=== PATIENT | female | born 2000 | race Two or more races ===

== ENCOUNTER 2022-02-27 15:36 | Emergency (ER) | payer MEDICAID ==
[~2022-02-27] VITALS: Ht 167.6 cm; Wt 47.6 kg
[2022-02-27 15:36] VITALS: BP 130/85
[2022-02-27 17:12] LABS: Eosinophils # (auto) 0.3 10 ^3/uL (0-0.8); Lymphocytes # (auto) 2.6 10 ^3/uL (0.4-5.4); Monocytes # (auto) 0.6 10 ^3/uL (0-1.3); Red Cell Distribution Width 16.3 % (11.8-14.3)
[2022-02-27 17:13] LABS: Basophils # (auto) 0.1 10 ^3/uL (0-0.2); Basophils % (auto) 1.1 % (0.0-2.0); Eosinophils % (auto) 2.5 % (0.0-7.0); Hematocrit 42.7 % (36.0-46.0); Hemoglobin 14.3 g/dL (12.2-16.2); Lymphocytes % (auto) 21.9 % (10.0-50.0); Mean Corpuscular Hemoglobin 24.9 pg (28.0-32.0); Mean Corpuscular Hgb Conc. 33.5 g/dL (32.0-36.0); Mean Corpuscular Volume 74.5 fL (80.0-100.0); Monocytes % (auto) 4.8 % (0.0-12.0); Neutrophils # (auto) 8.4 10 ^3/uL (1.6-8.6); Neutrophils % (auto) 69.7 % (37.0-80.0); Red Blood Cells 5.73 10^6/uL (4.0-5.20)
[2022-02-27 17:30] LABS: Potassium 3.6 mmol/L (3.5-5.1)
[2022-02-27 17:33] LABS: Albumin 4.3 g/dL (3.4-5.0); BUN/Creatinine Ratio 15.7
[2022-02-27 17:35] LABS: Bilirubin, Total 0.3 mg/dL (0.2-1.0); Total Protein 8.9 g/dL (6.4-8.2)
[2022-02-27] MEDS ORDERED: ALUM & MAG HYDROX-SIMETH LIQ(MAALOX) 30 ML PO ONE (18:00)
[2022-02-27] MEDS ORDERED: LIDOCAINE VISCOUS 2% 15ML UD PO ONE (18:00)
[2022-02-27] MEDS ORDERED: LACTATED RINGER'S 2,000 ML IV ONE (18:00)
[2022-02-27] MEDS ORDERED: ONDANSETRON HCL 4 MG/2 ML VIAL IV ONE (18:00)
[2022-02-27] MEDS ORDERED: FAMOTIDINE (10MG/ML) 2ML VL IV ONE (18:00)
== END 2022-02-27 18:52 | disposition left against medical advice (07) ==
LOC: ER 15:36
DX: R11.2 Nausea with vomiting, unspecified (principal); R42 Dizziness and giddiness; R19.7 Diarrhea, unspecified; Z53.21 Procedure and treatment not carried out due to patient leaving prior to being seen by health care provider
CPT/HCPCS: 36415; 36600; 80053; 82805; 82962; 85025

== ENCOUNTER 2022-05-21 14:12 | Emergency (ER) | payer MEDICAID ==
[2022-05-21 16:16] LABS: Urine Bacteria NONE SEEN /hpf (None Seen); Urine Blood 3+ /uL (Negative); Urine Budding Yeast OCCASIONAL /hpf (None Seen); Urine Specific Gravity 1.042 (1.001-1.035); Urine WBC 153 /hpf (0 - 5)
[2022-05-21] MEDS ORDERED: IBUPROFEN 800 MG TAB PO ONE (17:15)
[2022-05-21] MEDS ORDERED: CIPR500S2 PO (17:17)
[2022-05-21] MEDS ORDERED: IBUP800T27 PO (17:17)
[2022-05-21 17:33] VITALS: BP 122/74
== END 2022-05-21 17:06 | disposition home or self-care (01) ==
LOC: ER 14:12
DX: N39.0 Urinary tract infection, site not specified (principal); E11.65 Type 2 diabetes mellitus with hyperglycemia; Z20.822 Contact with and (suspected) exposure to COVID-19
CPT/HCPCS: 36415; 81001; 81025

== ENCOUNTER 2022-07-12 01:05 | Emergency (ER) | payer MEDICAID ==
[~2022-07-12] VITALS: Ht 167.6 cm; Wt 104.5 kg
[~2022-07-12 01:05] MED LIST: CIPR500S2 PO; IBUP800T27 PO
[2022-07-12 01:44] VITALS: BP 129/90
[2022-07-12] MEDS ORDERED: KETOROLAC TROMETH 60MG/2ML VIAL IM ONE (03:45)
== END 2022-07-12 04:42 | disposition home or self-care (01) ==
LOC: EDBD 01:05 → ER 01:06
DX: R51.9 Headache, unspecified (principal); E11.9 Type 2 diabetes mellitus without complications
CPT/HCPCS: 96372; 99283; J1885

== ENCOUNTER 2022-08-12 21:23 | Emergency (ER) | payer MEDICAID ==
[~2022-08-12] VITALS: Ht 167.6 cm; Wt 110.0 kg
[2022-08-12] MEDS ORDERED: KETOROLAC TROMETH 60MG/2ML VIAL IM ONE (22:15)
[2022-08-13] VITALS: BP 125/70
== END 2022-08-13 00:46 | disposition home or self-care (01) ==
LOC: EDBD 21:23 → ER 21:24
DX: M54.2 Cervicalgia (principal); R07.89 Other chest pain; M79.18 Myalgia, other site; E11.9 Type 2 diabetes mellitus without complications; V43.52XA Car driver injured in collision with other type car in traffic accident, initial encounter; Y93.89 Activity, other specified; Y92.89 Other specified places as the place of occurrence of the external cause; Y99.8 Other external cause status
CPT/HCPCS: 71045; 71120; 72040; 72070; 72170; 73552; 73562; 96372; 99284; J1885

== ENCOUNTER 2023-01-19 10:39 | Emergency (ER) | payer MEDICAID ==
[2023-01-19 11:22] VITALS: BP 122/59
[2023-01-19 11:52] LABS: Basophils # (auto) 0.1 10 ^3/uL (0-0.2); Eosinophils # (auto) 0.3 10 ^3/uL (0-0.8); Monocytes # (auto) 0.4 10 ^3/uL (0-1.3)
[2023-01-19 11:53] LABS: Basophils % (auto) 1.5 % (0.0-2.0); Hematocrit 41.9 % (36.0-46.0); Hemoglobin 14.2 g/dL (12.2-16.2); Lymphocytes # (auto) 2.5 10 ^3/uL (0.4-5.4); Lymphocytes % (auto) 29.5 % (10.0-50.0); Mean Corpuscular Hemoglobin 26.8 pg (28.0-32.0); Mean Corpuscular Volume 78.9 fL (80.0-100.0); Monocytes % (auto) 5.1 % (0.0-12.0); Neutrophils # (auto) 5.2 10 ^3/uL (1.6-8.6); Neutrophils % (auto) 60.9 % (37.0-80.0); Red Blood Cells 5.31 10^6/uL (4.0-5.20); Red Cell Distribution Width 15.3 % (11.8-14.3); White Blood Cell 8.6 10^3/uL (4.4-10.8)
[2023-01-19 12:19] LABS: BUN/Creatinine Ratio 29.2; Calcium 9.4 mg/dL (8.5-10.1); Potassium 3.6 mmol/L (3.5-5.1)
[2023-01-19 12:21] LABS: Urine Bacteria NONE SEEN /hpf (None Seen); Urine Blood 3+ /uL (Negative); Urine Mucus FEW (None Seen); Urine Specific Gravity 1.022 (1.001-1.035); Urine WBC 25 /hpf (0 - 5)
[2023-01-19 12:34] LABS: Alcohol, Urine < 3.0 mg/dL (0-10); Amphetamine Screen, Urine NEGATIVE (NEGATIVE); Barbiturate Scree,Urine NEGATIVE (NEGATIVE); Benzodiazephine Screen, Urine NEGATIVE (NEGATIVE); Cannabinoid Screen, Urine NEGATIVE (NEGATIVE); Cocaine Screen, Urine NEGATIVE (NEGATIVE); Opiate Scree,Urine NEGATIVE (NEGATIVE); Phencyclidine Screen, Urine NEGATIVE (NEGATIVE)
[2023-01-19] MEDS ORDERED: METF-370 PO (12:45)
[2023-01-19] MEDS ORDERED: PHEN200T16 PO (12:45)
[2023-01-19] MEDS ORDERED: metFORMIN HYDROCHLORIDE 500 MG TAB PO ONE (12:45)
[2023-01-19] MEDS ORDERED: BACDST PO (12:45)
== END 2023-01-19 12:55 | disposition home or self-care (01) ==
LOC: ER 10:39
DX: N39.0 Urinary tract infection, site not specified (principal); E11.65 Type 2 diabetes mellitus with hyperglycemia; Z79.1 Long term (current) use of non-steroidal anti-inflammatories (NSAID); Z79.2 Long term (current) use of antibiotics; Z79.84 Long term (current) use of oral hypoglycemic drugs; Z79.899 Other long term (current) drug therapy
CPT/HCPCS: 36415; 80048; 80307; 81001; 81025; 85025

== ENCOUNTER 2023-04-11 00:23 | Emergency (ER) | payer MEDICAID ==
[~2023-04-11] VITALS: Ht 170.2 cm; Wt 108.7 kg
[~2023-04-11 00:23] MED LIST changes: +BACDST PO; +IBUP-1456 PO; -IBUP800T27 PO; +METF-370 PO; +PHEN-922 PO
[2023-04-11 00:30] VITALS: BP 122/79
[2023-04-11 01:25] LABS: Urine Bacteria NONE SEEN /hpf (None Seen); Urine Blood 1+ /uL (Negative); Urine Specific Gravity 1.033 (1.001-1.035); Urine WBC 13 /hpf (0 - 5)
[2023-04-11 01:40] LABS: Basophils # (auto) 0.1 10 ^3/uL (0-0.2); Basophils % (auto) 0.9 % (0.0-2.0); Eosinophils # (auto) 0.2 10 ^3/uL (0-0.8); Eosinophils % (auto) 2.5 % (0.0-7.0); Hematocrit 42.4 % (36.0-46.0); Hemoglobin 14.6 g/dL (12.2-16.2); Lymphocytes # (auto) 2.8 10 ^3/uL (0.4-5.4); Lymphocytes % (auto) 36.3 % (10.0-50.0); Mean Corpuscular Hemoglobin 28.6 pg (28.0-32.0); Mean Corpuscular Hgb Conc. 34.5 g/dL (32.0-36.0); Mean Corpuscular Volume 82.8 fL (80.0-100.0); Monocytes # (auto) 0.5 10 ^3/uL (0-1.3); Monocytes % (auto) 6.2 % (0.0-12.0); Neutrophils # (auto) 4.2 10 ^3/uL (1.6-8.6); Neutrophils % (auto) 54.1 % (37.0-80.0); Nucleated Red Blood Cells % 0.2 %; Red Blood Cells 5.12 10^6/uL (4.0-5.20); Red Cell Distribution Width 14.3 % (11.8-14.3); White Blood Cell 7.8 10^3/uL (4.4-10.8)
[2023-04-11 01:51] LABS: Albumin 3.9 g/dL (3.4-5.0); Calcium 8.8 mg/dL (8.5-10.1); Potassium 3.6 mmol/L (3.5-5.1)
[2023-04-11 01:54] LABS: BUN/Creatinine Ratio 19.7 (10.0-20.0); Bilirubin, Total 0.4 mg/dL (0.2-1.0)
[2023-04-11] MEDS ORDERED: SODIUM CHLORIDE 0.9% 1,000 ML IV ONE (02:30)
== END 2023-04-11 06:55 | disposition left against medical advice (07) ==
LOC: ER 00:23
DX: G51.0 Bell's palsy (principal); J18.9 Pneumonia, unspecified organism; E11.9 Type 2 diabetes mellitus without complications; R07.89 Other chest pain
CPT/HCPCS: 36415; 70450; 71045; 80053; 81001; 82962; 84484; 85025; 96360; 99284; J7030

== ENCOUNTER 2024-05-16 08:49 | Emergency (ER) | payer MEDICAID ==
[~2024-05-16] VITALS: Ht 162.6 cm; Wt 107.2 kg
[2024-05-16 09:44] VITALS: BP 140/86; PULSE 90; RESP 18; TEMP 98; O2SAT 100
[2024-05-16 11:11] LABS: Basophils # (auto) 0.1 10 ^3/uL (0-0.2); Basophils % (auto) 0.8 % (0.0-2.0); Eosinophils # (auto) 0.3 10 ^3/uL (0-0.8); Eosinophils % (auto) 3.1 % (0.0-7.0); Hematocrit 44.1 % (36.0-46.0); Lymphocytes # (auto) 2.3 10 ^3/uL (0.4-5.4); Lymphocytes % (auto) 24.4 % (10.0-50.0); Mean Corpuscular Hemoglobin 28.2 pg (28.0-32.0); Mean Corpuscular Volume 82.8 fL (80.0-100.0); Monocytes # (auto) 0.5 10 ^3/uL (0-1.3); Monocytes % (auto) 5.6 % (0.0-12.0); Neutrophils # (auto) 6.2 10 ^3/uL (1.6-8.6); Neutrophils % (auto) 66.1 % (37.0-80.0); Nucleated Red Blood Cells % 0.1 %; Red Blood Cells 5.33 10^6/uL (4.0-5.20); Red Cell Distribution Width 14.2 % (11.8-14.3); White Blood Cell 9.3 10^3/uL (4.4-10.8)
[2024-05-16 11:14] LABS: Chloride 101 mmol/L (98-107); Potassium 3.5 mmol/L (3.5-5.1); Sodium 133 mmol/L (136-145)
[2024-05-16 11:15] LABS: Anion Gap 6 (5-15); Calcium 9.5 mg/dL (8.5-10.1); Carbon Dioxide 26 mmol/L (20-30)
[2024-05-16 11:20] LABS: BUN/Creatinine Ratio 20.3 (10.0-20.0); Blood Urea Nitrogen 14 mg/dL (9-23); Glucose 276 mg/dL (74-106)
[2024-05-16] MEDS ORDERED: BACL10TA PO (11:30)
== END 2024-05-16 11:33 | disposition home or self-care (01) ==
LOC: ER 08:49
DX: M54.41 Lumbago with sciatica, right side (principal); E11.9 Type 2 diabetes mellitus without complications
CPT/HCPCS: 36415; 72100; 80048; 85025

== ENCOUNTER 2024-08-28 12:54 | Emergency (ER) | payer MEDICAID ==
[~2024-08-28] VITALS: Ht 167.6 cm; Wt 106.1 kg
[~2024-08-28 12:54] MED LIST changes: +BACL10TA PO
[2024-08-28 13:56] LABS: Urine Bacteria None Seen /hpf (None Seen)
[2024-08-28 14:13] LABS: Basophils # (auto) 0.1 10 ^3/uL (0-0.2); Basophils % (auto) 1.3 % (0.0-2.0); Eosinophils # (auto) 0.3 10 ^3/uL (0-0.8); Eosinophils % (auto) 3.2 % (0.0-7.0); Hematocrit 45.7 % (36.0-46.0); Hemoglobin 15.5 g/dL (12.2-16.2); Lymphocytes # (auto) 3.5 10 ^3/uL (0.4-5.4); Lymphocytes % (auto) 34.3 % (10.0-50.0); Mean Corpuscular Hemoglobin 28.5 pg (28.0-32.0); Mean Corpuscular Volume 83.9 fL (80.0-100.0); Monocytes # (auto) 0.6 10 ^3/uL (0-1.3); Monocytes % (auto) 5.7 % (0.0-12.0); Neutrophils # (auto) 5.6 10 ^3/uL (1.6-8.6); Neutrophils % (auto) 55.5 % (37.0-80.0); Platelet Count (auto) 278 10^3/uL (140-450); Red Blood Cells 5.45 10^6/uL (4.0-5.20); Red Cell Distribution Width 13.9 % (11.8-14.3); White Blood Cell 10.1 10^3/uL (4.4-10.8)
[2024-08-28 14:36] LABS: Urine Blood 3+ /uL (Negative); Urine Clarity Ex.Turbid (Clear); Urine Color Light-Red (Yellow); Urine Mucus MODERATE (None Seen); Urine Protein, UAD 1+ (Negative); Urine Specific Gravity 1.025 (1.001-1.035); Urine Urobilinogen Normal (Negative); Urine WBC 108 /hpf (0 - 5)
[2024-08-28 14:41] LABS: Alanine Aminotransferase 151 U/L (7-40); Albumin 4.7 g/dL (3.2-4.8); Alkaline Phosphatase 123 U/L (46-116); Anion Gap 6 (5-15); Aspartate Aminotransferase 57 U/L (13-40); BUN/Creatinine Ratio 23.9 (10.0-20.0); Blood Urea Nitrogen 21 mg/dL (9-23); Calcium 10.1 mg/dL (8.7-10.4); Carbon Dioxide 28 mmol/L (20-31); Chloride 101 mmol/L (98-107); Glucose 279 mg/dL (74-106); Potassium 3.8 mmol/L (3.5-5.1); Sodium 135 mmol/L (136-145)
[2024-08-28 14:42] LABS: Bilirubin, Total 0.6 mg/dL (0.2-1.0); Total Protein 7.7 g/dL (5.7-8.2)
[2024-08-28] MEDS ORDERED: METF-370 PO (15:51)
[2024-08-28 16:30] VITALS: PULSE 92; RESP 16; O2SAT 97
[2024-08-28 16:35] VITALS: BP 121/70; PULSE 92; RESP 16; TEMP 97.9; O2SAT 97
[2024-08-28] MEDS ORDERED: NITR-87 PO (17:02)
== END 2024-08-28 17:05 | disposition home or self-care (01) ==
LOC: ER 12:54
DX: E11.65 Type 2 diabetes mellitus with hyperglycemia (principal); R10.9 Unspecified abdominal pain; R11.2 Nausea with vomiting, unspecified; Z79.84 Long term (current) use of oral hypoglycemic drugs; Z79.899 Other long term (current) drug therapy; Z91.148 Patient's other noncompliance with medication regimen for other reason; Z87.440 Personal history of urinary (tract) infections
CPT/HCPCS: 36415; 80053; 81001; 81025; 82962; 85025